=== PATIENT | female | born 1990 | race American Indian/Alaskan Native ===

== ENCOUNTER 2016-09-08 07:45 | Emergency (ER) | payer OTHER ==
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
[2016-09-08 08:54] LABS: Alanine Aminotransferase 17 units/L (7-56); Albumin 4.3 g/dL (3.9-5); Albumin/Globulin Ratio 1.1 %; Alkaline Phosphatase 81 units/L (35-129); Anion Gap 19 mmol/L; BUN/Creatinine Ratio 16.66; Blood Urea Nitrogen 10 mg/dL (7-17); Carbon Dioxide 25 mmol/L (22-30); Chloride 99.2 mmol/L (98-107); Glucose 42 mg/dL (65-100); Potassium 4.3 mmol/L (3.6-5.0); Sodium 139 mmol/L (137-145); Total Protein 8.2 g/dL (6.3-8.2)
[2016-09-08] MEDS ORDERED: D50W (25GM) IV ONE (08:55)
[2016-09-08 09:04] LABS: Urine Drugs of Abuse Note Disclamer
--- NOTE | 2016-09-08 09:18 | Cat Scan Report ---
FINAL REPORT PROCEDURE: CT HEAD/BRAIN WO CON TECHNIQUE: Computerized tomography of the head was performed without contrast material. HISTORY: Seizure COMPARISON: None FINDINGS: Partially included on the examination is chronic left maxillary and bilateral ethmoidal sinusitis. Right EAC soft tissue density likely cerumen is present. Aeration of the petrous apices are seen. Brain volume is age appropriate. There is no intra or extra-axial hemorrhage. There is no mass effect or hydrocephalus. The white matter is intact. There is no gross mass lesion or leptomeningeal abnormality given limitation of lack of IV contrast. IMPRESSION: No CT evident focal intracranial abnormality. Consider for most sensitive evaluation of subtle seizure focus/intracranial lesion, seizure protocol MRI with and without contrast. Partially imaged chronic sinusitis
[2016-09-08] MEDS ORDERED: TYLENOL PO ONE (09:20)
[2016-09-08] MEDS ORDERED: TORADOL IV ONE (09:20)
[2016-09-08] MEDS ORDERED: NACL 0.9% 500 ML 500 ML IV ONE (09:21)
[2016-09-08 09:30] LABS: Bacteria,Urine 2+ /HPF (Negative); Bilirubin,Urine NEG (Negative); Blood,Urine MOD (Negative); Ketones,Urine NEG (Negative); Leukocyte Esterase,Urine NEG (Negative); Mucus,Urine FEW /HPF; Nitrite,Urine NEG (Negative); Urobilinogen,Urine < 2.0 mg/dL (<2.0)
[2016-09-08 09:32] LABS: Hematocrit 32.3 % (30.3-42.9); Hemoglobin 10.5 gm/dl (10.1-14.3); Mean Corpuscular HGB Conc 32 % (30-34); Mean Corpuscular Volume 80 fl (79-97); Red Blood Count 4.05 M/mm3 (3.65-5.03)
[2016-09-08 09:35] LABS: Mean Corpuscular Hemoglobin 26 pg (28-32)
[2016-09-08 09:36] LABS: Platelet Count 262 K/mm3 (140-440)
[2016-09-08 10:37] LABS: White Blood Count 7.7 K/mm3 (4.5-11.0)
[2016-09-08 10:41] LABS: Basophils % (Manual) 0 % (0.0-1.8); Blastocytes % (Manual) 0 %
[2016-09-08 10:42] LABS: Anisocytosis 1+; Hypochromasia Few; Large Platelets Rare; Platelet Clumps Rare
[2016-09-08 10:43] LABS: Toxic Granulation Rare
[2016-09-08 10:47] LABS: Diff Status Complete
[2016-09-08 10:59] VITALS: BP 129/71
== END 2016-09-08 11:17 | disposition home or self-care (01) ==
LOC: ED 07:45
DX: R56.9 Unspecified convulsions (principal); E11.649 Type 2 diabetes mellitus with hypoglycemia without coma
CPT/HCPCS: 36415; 70450; 80053; 80307; 81001; 82550; 82962; 84443; 84703; 85007; 85025; 93005; 93010; 96374; 96375; 99285; G0480; J1885; J7040; 80320

== ENCOUNTER 2018-05-08 13:19 | Outpatient (CLI) | payer MEDICAID ==
[2018-05-08] MEDS ORDERED: LACTATED RINGERS 1,000 ML IV SCH (16:00)
[2018-05-08 20:25] VITALS: BP 126/66
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
== END 2018-05-08 20:50 | disposition home or self-care (01) ==
LOC: TRG 13:19 → LD 14:11 → TRG 20:50
PROVIDERS: ATTEND Obstetrics & Gynecology
DX: O47.02 False labor before 37 completed weeks of gestation, second trimester (principal); Z3A.27 27 weeks gestation of pregnancy; Z90.49 Acquired absence of other specified parts of digestive tract
CPT/HCPCS: 76815; 82962; 85460; 86850; 86900; 86901; J7120

== ENCOUNTER 2021-04-13 00:54 | Emergency (ER) | payer MEDICAID, OTHER ==
[2021-04-13] MEDS ORDERED: ONDANSETRON 4 MG/2 ML INJ IV ONE ×2 (03:45→05:21)
[2021-04-13] MEDS ORDERED: SODIUM CHLORIDE 0.9% 1000 ML 1,000 ML IV ONE (03:45)
[2021-04-13] MEDS ORDERED: ACETAMINOPHEN 500 MG TAB PO ONE (04:22)
[2021-04-13 04:34] LABS: Basophils % (Auto) 0.3 % (0.0-1.8); Eosinophils % (Auto) 0.2 % (0.0-4.3); Lymphocytes # (Auto) 0.5 K/mm3 (1.2-5.4); Lymphocytes % (Auto) 10.1 % (13.4-35.0); Mean Corpuscular HGB Conc 30 % (30-34); Mean Corpuscular Volume 78 fl (79-97); Monocytes # (Auto) 0.3 K/mm3 (0.0-0.8); Monocytes % (Auto) 5.9 % (0.0-7.3); Platelet Count 282 K/mm3 (140-440); Red Blood Count 4.58 M/mm3 (3.65-5.03)
[2021-04-13 04:36] LABS: Hematocrit 35.8 % (30.3-42.9); Hemoglobin 10.9 gm/dl (10.1-14.3)
[2021-04-13 04:46] LABS: Alanine Aminotransferase 13 units/L (7-56); Albumin 4.5 g/dL (3.9-5); BUN/Creatinine Ratio 11; Blood Urea Nitrogen 9 mg/dL (7-17); Hemolysis Index 3
--- NOTE | 2021-04-13 05:15 | Emergency Department Report ---
ED General Adult HPI - General Chief complaint: Nausea/Vomiting/Diarrhea Stated complaint: WEAKNESS/BODYACHES Source: EMS Mode of arrival: Stretcher Limitations: No Limitations - History of Present Illness Initial comments: Patient 30-year-old -[place] female history of diabetes type 2. Patient presents for nausea vomiting placed x3 days. Patient denies fevers or chills. Abdominal pain rated at 4/10 all over , last menstrual cycle was 3 weeks ago. Patient advises no exacerbating or relieving factors. No relieving factors are tried. Severity scale (0 -10): 6 - Related Data Previous Rx's Medication Instructions Recorded Last Taken Type Ondansetron [Zofran Odt] 4 mg PO Q8HR #12 tab.rapdis 04/13/21 Unknown Rx cephALEXin [Keflex] 500 mg PO BID 7 Days #14 cap 04/13/21 Unknown Rx traMADoL [Ultram] 50 mg PO Q6HR PRN #12 tablet 04/13/21 Unknown Rx Allergies Allergy/AdvReac Type Severity Reaction Status Date / Time morphine Allergy Unknown Verified 09/08/16 07:56 Penicillins Allergy Unknown Verified 09/08/16 07:56 ED Review of Systems ROS: Stated complaint: WEAKNESS/BODYACHES Other details as noted in HPI Constitutional: denies: chills, fever Eyes: denies: eye pain, eye discharge, vision change ENT: denies: ear pain, throat pain Respiratory: denies: cough, shortness of breath, wheezing Cardiovascular: denies: chest pain, palpitations Endocrine: no symptoms reported Gastrointestinal: denies: abdominal pain, nausea, vomiting, diarrhea Genitourinary: denies: urgency, dysuria, frequency, hematuria, discharge Musculoskeletal: denies: back pain, joint swelling, arthralgia Skin: denies: rash, lesions Neurological: headache. denies: weakness, paresthesias, vertigo Psychiatric: as per HPI Hematological/Lymphatic: denies: easy bleeding, easy bruising ED Past Medical Hx - Past Medical History Hx Hypertension: No Hx Diabetes: Yes (type 1) Hx Deep Vein Thrombosis: No Hx Renal Disease: No Hx Sickle Cell Disease: No Hx Seizures: No Hx Asthma: No Hx HIV: No - Surgical History Hx Appendectomy: Yes - Social History Smoking Status: Never Smoker - Medications Home Medications: Home Medications Medication Instructions Recorded Confirmed Last Taken Type Ondansetron [Zofran Odt] 4 mg PO Q8HR #12 tab.rapdis 04/13/21 Unknown Rx cephALEXin [Keflex] 500 mg PO BID 7 Days #14 cap 04/13/21 Unknown Rx traMADoL [Ultram] 50 mg PO Q6HR PRN #12 tablet 04/13/21 Unknown Rx ED Physical Exam - General Limitations: No Limitations General appearance: alert, in no apparent distress - Head Head exam: Present: atraumatic, normocephalic, normal inspection - Eye Eye exam: Present: normal appearance, PERRL, EOMI. Absent: conjunctival inje ction, nystagmus Pupils: Present: normal accommodation - ENT ENT exam: Present: mucous membranes moist - Neck Neck exam: Present: normal inspection, full ROM. Absent: tenderness - Respiratory Respiratory exam: Present: normal lung sounds bilaterally. Absent: respiratory distress - Cardiovascular Cardiovascular Exam: Present: regular rate, normal rhythm, normal heart sounds. Absent: systolic murmur, diastolic murmur, rubs, gallop - GI/Abdominal GI/Abdominal exam: Present: soft, normal bowel sounds. Absent: distended, tenderness, guarding, rebound, rigid, bruit, hernia - Rectal Rectal exam: Present: deferred - External exam: Present: other (denies ) - Extremities Exam Extremities exam: Present: normal inspection, full ROM, normal capillary refill. Absent: pedal edema, joint swelling, calf tenderness - Back Exam Back exam: Present: normal inspection. Absent: tenderness, CVA tenderness (R), CVA tenderness (L) - Neurological Exam Neurological exam: Present: alert, oriented X3, CN II-XII intact, normal gait, reflexes normal. Absent: motor sensory deficit - Expanded Neurological Exam Expanded Patient oriented to: Present: person, place, time Speech: Present: fluid speech Motor strength exam: RUE: 5, LUE: 5, RLE: 5, LLE: 5 Best Eye Response (Bayard): (4) open spontaneously Best Motor Response (Bayard): (6) obeys commands Best Verbal Response (Bayard): (5) oriented Peter Total: 15 - Psychiatric Psychiatric exam: Present: normal affect, normal mood - Skin Skin exam: Present: warm, dry, intact, normal color. Absent: rash ED Course Vital Signs 04/13/21 04/13/21 00:59 05:30 Temperature 99.7 F H Pulse Rate 78 Respiratory 18 14 Rate Blood Pressure 140/81 [Left] O2 Sat by Pulse 99 Oximetry ED Medical Decision Making - Lab Data Result diagrams: 04/13/21 04:01 04/13/21 04:01 Labs 04/13/21 04/13/21 04/13/21 04:01 04:01 04:01 WBC 4.8 RBC 4.58 Hgb 10.9 Hct 35.8 MCV 78 L MCH 24 L MCHC 30 RDW 18.0 H Plt Count 282 Lymph % (Auto) 10.1 L [place] % (Auto) 5.9 Eos % (Auto) 0.2 Baso % (Auto) 0.3 Lymph # (Auto) 0.5 L [place] # (Auto) 0.3 Eos # (Auto) 0.0 Baso # (Auto) 0.0 Seg Neutrophils % 83.5 H Seg Neutrophils # 4.0 VBG pH 7.342 Sodium 136 L Potassium 4.4 Chloride 101.5 Carbon Dioxide 23 Anion Gap 16 BUN 9 Creatinine 0.8 Estimated GFR > 60 BUN/Creatinine Ratio 11 Glucose 258 H POC Glucose Calcium 9.0 Total Bilirubin 1.10 AST 20 ALT 13 Alkaline Phosphatase 97 Total Protein 7.9 Albumin 4.5 Albumin/Globulin Ratio 1.3 Urine Color Urine Turbidity Urine pH Ur Specific [place] Urine Protein Urine Glucose (UA) Urine Ketones Urine Blood Urine Nitrite Urine Bilirubin Urine Urobilinogen Ur Leukocyte Esterase Urine WBC (Auto) Urine RBC (Auto) U Epithel Cells (Auto) Urine Bacteria (Auto) Urine Mucus Urine HCG, Qual 04/13/21 04/13/21 04:13 Unknown WBC RBC Hgb Hct MCV MCH MCHC RDW Plt Count Lymph % (Auto) [place] % (Auto) Eos % (Auto) Baso % (Auto) Lymph # (Auto) [place] # (Auto) Eos # (Auto) Baso # (Auto) Seg Neutrophils % Seg Neutrophils # VBG pH Sodium Potassium Chloride Carbon Dioxide Anion Gap BUN Creatinine Estimated GFR BUN/Creatinine Ratio Glucose POC Glucose 217 H Calcium Total Bilirubin AST ALT Alkaline Phosphatase Total Protein Albumin Albumin/Globulin Ratio Urine Color Yellow Urine Turbidity Cloudy Urine pH 5.0 Ur Specific [place] 1.018 Urine Protein 30 mg/dl Urine Glucose (UA) Neg Urine Ketones Tr Urine Blood Sm Urine Nitrite Pos Urine Bilirubin Neg Urine Urobilinogen < 2.0 Ur Leukocyte Esterase Sm Urine WBC (Auto) 5.0 Urine RBC (Auto) 2.0 U Epithel Cells (Auto) 10.0 Urine Bacteria (Auto) 4+ Urine Mucus Few Urine HCG, Qual Negative - Radiology Data Radiology results: report reviewed, image reviewed - Medical Decision Making Labs noted as above UA positive for nitrites and leukocytes, plan treat for UTI patient be DC'd with prescription facial follow-up primary care doctor in 2 to 3 days. Patient verbalized agreement understanding discharge plan patient will be DC'd home in stable condition at this time. Critical care attestation.: If time is entered above; I have spent that time in minutes in the direct care of this critically ill patient, excluding procedure time. 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 Prescriptions: cephALEXin [Keflex] 500 mg PO BID 7 Days #14 cap traMADoL [Ultram] 50 mg PO Q6HR PRN #12 tablet PRN Reason: Pain Ondansetron [Zofran Odt] 4 mg PO Q8HR #12 tab.rapdis Referrals: CORINNA MCFARLAND MD [Staff Physician] - 3-5 Days Forms: Work/School Release Form(ED) Time of Disposition: 06:28
[2021-04-13] MEDS ORDERED: KETOROLAC 30 MG/1 ML INJ IV ONE (05:21)
[2021-04-13 05:28] LABS: Bacteria,Urine 4+ /HPF (Negative); Bilirubin,Urine NEG (Negative); Blood,Urine SM (Negative); Color,Urine Yellow (Yellow); Mucus,Urine FEW /HPF; Urobilinogen,Urine < 2.0 mg/dL (<2.0)
[2021-04-13 05:31] LABS: HCG Qualitative,Urine Negative (Negative)
[2021-04-13] MEDS ORDERED: cefTRIAXone/NS 1 GM/50 ML 1 GM/50 ML BAG IV ONE (05:45)
[2021-04-13] MEDS ORDERED: METOCLOPRAMIDE 10 MG/2 ML INJ IV ONE (05:45)
[2021-04-13] MEDS ORDERED: diphenhydrAMINE 50 MG/ML VIAL IV ONE (05:45)
[2021-04-13 06:55] VITALS: BP 136/86
== END 2021-04-13 08:12 | disposition home or self-care (01) ==
LOC: ED 00:54
DX: N39.0 Urinary tract infection, site not specified (principal); E10.9 Type 1 diabetes mellitus without complications; R11.2 Nausea with vomiting, unspecified; Z88.5 Allergy status to narcotic agent; Z88.0 Allergy status to penicillin; Z79.899 Other long term (current) drug therapy
CPT/HCPCS: 36415; 80053; 81001; 81025; 82805; 82962; 85025; 96361; 96365; 96375; 96376; 99284; J0696; J1200; J1885; J2405; J2765; J7030; Q0162